=== PATIENT | male | born 1960 | race Native Hawaiian/Other Pacific Islander ===

== ENCOUNTER 2022-04-04 16:25 | Outpatient (CLI) | payer OTHER | END 2022-04-04 19:03 | disposition home or self-care (01) | LOC: RAD 16:25 | PROVIDERS: ATTEND Internal Medicine | DX: S33.5XXA Sprain of ligaments of lumbar spine, initial encounter (principal); Y92.89 Other specified places as the place of occurrence of the external cause ==